=== PATIENT | male | born 1980 | race Hispanic/Latino ===

== ENCOUNTER 2025-03-23 04:39 | Emergency (ER) | payer OTHER ==
[2025-03-23 05:08] LABS: #Basophils Less than 0.03 10x3/uL (0.0-0.2); #Eosinophils 0.13 10x3/uL (0.0-0.5); #Monocytes 0.75 10x3/uL (0.0-1.1); #Neutrophils 6.02 10x3/uL (1.5-8.4); %Basophils 0.2 % (0.0-2.0); %Eosinophils 1.3 % (0.0-6.0); %Lymphocytes 28.7 % (18.0-47.0); %Monocytes 7.7 % (0.0-10.0); %Neutrophils 61.8 % (40.0-75.0); Hematocrit 40.7 % (38.8-50.0); Hemoglobin 13.9 g/dL (13.5-17.5); Mean Corpuscular Hemoglobin 28.8 pg (27.0-33.0); Mean Corpuscular Volume 84.3 fL (81.2-95.1); Platelet Count 208 10x3/uL (150-450); Red Blood Cell (RBC) Count 4.83 10x6/uL (4.32-5.72); White Blood Cell (WBC) Count 9.75 10x3/uL (3.5-10.5)
[2025-03-23 05:25] LABS: ALT (SGPT) 15 U/L (Less than 45); AST (SGOT) 61 U/L (11-34); Albumin 4.0 g/dL (3.1-4.5); Alkaline Phosphatase 52 U/L (40-110); Anion Gap 11 mmol/L (10-20); BUN (Urea Nitrogen) 19 mg/dL (8.9-20.6); Bilirubin, Total 0.6 mg/dL (0.3-1.2); Calc. Creatinine Clearance 0 mL/min (70-130); Calcium 8.6 mg/dL (7.8-10.44); Carbon Dioxide 27 mmol/L (22-29); Chloride 106 mmol/L (98-107); Globulin 2.7 g/dL (2.4-3.5); Glucose 123 mg/dL (70-105); Lipase 39 U/L (8-78); Potassium 3.7 mmol/L (3.5-5.1); Sodium 140 mmol/L (136-145)
[2025-03-23] MEDS ORDERED: Ondansetron PF 4 MG/2 ML Vial ONE (05:35)
[2025-03-23] MEDS ORDERED: Ketorolac Tromethamine 30 MG (1 mL) VIAL ONE (05:35)
[2025-03-23] MEDS ORDERED: Iopamidol 300 61% 100 ML VIAL FS ONE (09:12)
== END 2025-03-23 06:48 ==
LOC: CSHERS 04:39 → EEVIPCON 04:39 → CSHERS 06:48
DX: R10.9 Unspecified abdominal pain (principal)
CPT/HCPCS: 74177; 80053; 83690; 85025; 96374; 96375; J1885; J2405; Q9967